=== PATIENT | female | born 1965 | race Caucasian/White ===

== ENCOUNTER 2021-07-28 09:27 | Emergency (ER) | payer OTHER ==
[2021-07-28] MEDS ORDERED: SODIUM CHLORIDE 0.9% 1,000 ML IV STA (09:49)
[2021-07-28 10:05] LABS: BASOPHILS % (AUTO) 0.6 %; EOSINOPHILS # (AUTO) 0.1 10^3/uL (0.0-0.7); EOSINOPHILS % (AUTO) 1.1 %; HGB - HEMOGLOBIN 13.9 g/dL (12.0-16.0); LYMPHOCYTES # (AUTO) 2.1 10^3/uL (1.5-3.5); LYMPHOCYTES % (AUTO) 32.9 %; MEAN CORPUSCULAR HEMOGLOBIN 28.6 pg (27.0-31.0); MEAN CORPUSCULAR HGB CONC 33.1 g/dL (32.0-36.0); MEAN CORPUSCULAR VOLUME 86.4 fL (81.0-99.0); MEAN PLATELET VOLUME 10.4 fL (7.9-10.8); MONOCYTES # (AUTO) 0.5 10^3/uL (0.0-1.0); MONOCYTES % (AUTO) 7.9 %; NEUTROPHILS # (AUTO) 3.7 10^3/uL (1.5-6.6); NEUTROPHILS % (AUTO) 57.2 %; PLT - PLATELET COUNT 181 10^3/uL (130-450); RED BLOOD COUNT 4.86 10^6/uL (4.20-5.40); RED CELL DISTRIBUTION WIDTH 12.2 % (12.0-15.0); WHITE BLOOD COUNT 6.5 x10^3/uL (4.8-10.8)
[2021-07-28 10:22] LABS: ALBUMIN 4.4 g/dL (3.2-5.5); ALBUMIN/GLOBULIN RATIO 1.5 (1.0-2.2); BILIRUBIN,TOTAL 0.7 mg/dL (0.2-1.0); CALCIUM 9.3 mg/dL (8.5-10.3); CREATININE 0.7 mg/dL (0.4-1.0); POTASSIUM 3.7 mmol/L (3.5-5.0); TOTAL PROTEIN 7.3 g/dL (6.7-8.2)
--- NOTE | 2021-07-28 10:58 | ED Physician Documentation ---
History of Present Illness - Stated complaint Stated Complaint: HEART PALP - Chief complaint Chief Complaint: Cardiac - History obtained from History obtained from: Patient - Additonal information Additional information: Patient comes emergency department chief complaint of palpitations and chest tightness this morning, starting around 701. Patient states that she was just getting up when she suddenly felt the sensation noted above. She went and got her apple watch, which showed a heart rate of about 170. She states that it lasts about 45 minutes and then finally stopped on its own. She states that during the episode, she felt a constant sense of chest tightness but no shortness of breath or nausea. She states that her heart rate remained a little above 100 throughout the morning and that she continued to have just a sense of chest tightness. 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 Patient states that she has occasionally had episodes like this before, but that they went away on their own, and she did not pursue them further. She denies any exertional dyspnea or chest pain. No history of diabetes, hypertension, or smoking. No family history of coronary artery disease. Patient states she has gained some weight but that otherwise she is pretty healthy. No known history of dysrhythmia previously. She states that now she feels normal. No other complaints at this time. Review of Systems Ten Systems: 10 systems reviewed and negative Constitutional: reports: Reviewed and negative Eyes: reports: Reviewed and negative Ears: reports: Reviewed and negative Nose: reports: Reviewed and negative Throat: reports: Reviewed and negative Cardiac: reports: Chest pain / pressure, Palpitations Respiratory: reports: Reviewed and negative GI: reports: Reviewed and negative : reports: Reviewed and negative Skin: reports: Reviewed and negative Musculoskeletal: reports: Reviewed and negative Neurologic: reports: Reviewed and negative Psychiatric: reports: Reviewed and negative Endocrine: reports: Reviewed and negative Immunocompromised: reports: Reviewed and negative PD PAST MEDICAL HISTORY - Past Medical History Cardiovascular: Arrhythmia Neuro: Migraines, Motion sickness, Fainting GI: Diverticulitis - 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 - Allergies Allergies/Adverse Reactions: Allergies Allergy/AdvReac Type Severity Reaction Status Date / Time No Known Drug Allergies Allergy Verified 07/28/21 09:34 - Social History Does the pt smoke?: No Smoking Status: Never smoker Does the pt drink ETOH?: No Does the pt have substance abuse?: No - Immunizations Immunizations are current?: No PD ED PE NORMAL - Vitals Vital signs reviewed: Yes - General General: Alert and oriented X 3, No acute distress, Well developed/nourished - HEENT HEENT: Atraumatic, PERRL, EOMI, Moist mucous membranes - Neck Neck: Supple, no meningeal sign - Cardiac Cardiac: RRR, No murmur, Strong equal pulses - Respiratory Respiratory: No respiratory distress, Clear bilaterally - Abdomen Abdomen: Soft, Non tender, Non distended - Derm Derm: Normal color, Warm and dry, No rash - Extremities Extremities: No deformity, No edema, No calf tenderness / cord - Neuro Neuro: Alert and oriented X 3, 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, Normal speech - Psych Psych: Normal mood, Normal affect Results - Vitals Vitals: Oxygen O2 Source Room air - EKG (time done) 0938 Rate: Rate (enter#) (105) Rhythm: Sinus tachycardia [place]: Normal Intervals: Normal NC QRS: Normal Ischemia: Normal ST segments, Non specific changes Compare to prior EKG: Old EKG unavailable Computer interpretation: Agree with computer - Labs Labs: Laboratory Tests 07/28/21 07/28/21 07/28/21 09:57 09:57 09:57 WBC 6.5 RBC 4.86 Hgb 13.9 Hct 42.0 MCV 86.4 MCH 28.6 MCHC 33.1 RDW 12.2 Plt Count 181 MPV 10.4 Neut # (Auto) 3.7 Lymph # (Auto) 2.1 [place] # (Auto) 0.5 Eos # (Auto) 0.1 Baso # (Auto) 0.0 Absolute Nucleated RBC 0.00 Nucleated RBC % 0.0 Sodium 142 Potassium 3.7 Chloride 105 Carbon Dioxide 25 Anion Gap 12.0 BUN 12 Creatinine 0.7 Estimated GFR (MDRD) 87 L Glucose 104 H Calcium 9.3 Total Bilirubin 0.7 AST 20 ALT 20 Alkaline Phosphatase 70 Troponin I High Sens Total Protein 7.3 Albumin 4.4 Globulin 2.9 Albumin/Globulin Ratio 1.5 Lipase 45 TSH 1.06 07/28/21 09:57 WBC RBC Hgb Hct MCV MCH MCHC RDW Plt Count MPV Neut # (Auto) Lymph # (Auto) [place] # (Auto) Eos # (Auto) Baso # (Auto) Absolute Nucleated RBC Nucleated RBC % Sodium Potassium Chloride Carbon Dioxide Anion Gap BUN Creatinine Estimated GFR (MDRD) Glucose Calcium Total Bilirubin AST ALT Alkaline Phosphatase Troponin I High Sens 15.9 H* Total Protein Albumin Globulin Albumin/Globulin Ratio Lipase TSH PD MEDICAL DECISION MAKING - ED course Complexity details: reviewed results, re-evaluated patient, considered differential, d/w patient ED course: The patient was worked up with labs and EKG, all of which were unremarkable. She remained in normal sinus rhythm throughout her stay in the emergency department. I discussed with the pt that I suspect paroxysmal SVT. I contemplated starting the pt on as-needed metoprolol, but since pt has an appt with her doctor for this tomorrow, I will defer to her PCP. We have discussed the usual indications for return to the ED. Departure - Departure Disposition: 01 Home, Self Care Clinical Impression: Paroxysmal SVT (supraventricular tachycardia) Condition: Stable Instructions: ED Tachycardia Pat PSVT Comments: Your labs and EKG look good today. You have been in a normal rhythm at a normal rate, cardiac trevino, since you have been in the emergency department. You most likely are experiencing episodes of paroxysmal supraventricular ocular tachycardia, which can present with sudden onset of heart rate around the level you had this morning. Since you have an appointment with your primary doctor tomorrow, we will hold off on prescribing any medication, and let your primary doctor determine what to put you on, instead. As we have discussed, you most likely will need to wear an event monitor to determine how often you are having these episodes and how high your heart rate is going and how long the episodes are lasting. This will help determine whether you need to be on medication or whether you need a cardiology referral. If you develop another episode before you see your doctor and it does not resolve on its own within a few minutes, or if it is associated with severe chest pain and shortness of breath, you should return immediately to the emergency department. Discharge Date/Time: 07/28/21 12:23
[2021-07-28 11:29] VITALS: BP 124/92
== END 2021-07-28 12:23 | disposition home or self-care (01) ==
LOC: ED 09:27
DX: I47.1 Supraventricular tachycardia (principal); R07.89 Other chest pain
CPT/HCPCS: 36415; 80053; 83690; 84443; 84484; 85025; 93005; 96360; 96361; 99283